=== PATIENT | male | born 1950 | race Caucasian/White ===

== ENCOUNTER → 2017-01-17 | Outpatient (CLI) | payer MEDICARE, BC ==
--- NOTE | 2017-01-17 08:52 | US ---
EXAMINATION TYPE: US liver DATE OF EXAM: 01/17/2017 COMPARISON: CT scan 04/29/2014, ultrasound 08/20/2007 CLINICAL HISTORY: Hepatic Cyst K76.89. RUQ pain, hepatic cysts, cholecystectomy EXAM MEASUREMENTS: Liver Length: 19.0 cm Gallbladder Wall: Surgically absent CBD: 0.4 cm Right Kidney: 9.8 x 4.7 x 4.5 cm Pancreas: Obscured by bowel gas Liver: enlarged, attenuating, multiple cystic areas noted with largest appearing complex = 6.1 x 2.9 x 4.5cm Gallbladder: Surgically absent Evidence for sonographic Preciado's sign: No CBD: appears wnl Right Kidney: no evidence of hydronephrosis or mass IMPRESSION: 1. Mild hepatomegaly with the liver measuring 19 cm in greatest mention. Increased attenuation throug hout the liver is a nonspecific finding which can be seen with fatty infiltration. Correlate clinical ly. Other less likely etiologies include hepatitis. 2. There are multiple cystic lesions within the liver with the largest measuring 6.1 x 4.5 cm with in ternal septations. This appears stable from the ultrasound of 2007 and has a benign appearance. Addit ional simple appearing cysts are noted within the liver.
== END ==
LOC: RADUSWWP 06:48
PROVIDERS: ATTEND Internal Medicine
DX: K76.89 Other specified diseases of liver (principal); R16.0 Hepatomegaly, not elsewhere classified
CPT/HCPCS: 76705